=== PATIENT | female | born 1995 | race Caucasian/White ===

== ENCOUNTER 2019-03-19 01:34 | Emergency (ER) | payer OTHER ==
[2019-03-19 01:48] VITALS: BP 112/88
--- NOTE | 2019-03-19 14:49 | EKG REPORT ---
SEVERITY:- BORDERLINE ECG - SINUS RHYTHM PROBABLE LEFT ATRIAL ABNORMALITY : Confirmed by: Marilu Villalpando MD 19-Mar-2019 14:49:02
== END 2019-03-19 03:41 | disposition left against medical advice (07) ==
LOC: ER 01:34
DX: Z53.21 Procedure and treatment not carried out due to patient leaving prior to being seen by health care provider (principal)
CPT/HCPCS: 93005; 93010